=== PATIENT | female | born 1965 | race Caucasian/White ===

== ENCOUNTER 2018-08-17 19:30 | Emergency (ER) | payer SELFPAY ==
[~2018-08-17] VITALS: Ht 157.5 cm; Wt 52.3 kg
[2018-08-17 19:39] VITALS: BP 171/86
--- NOTE | 2018-08-17 20:19 | NUR ---
DR. BILL AT [facility] HE REPORTS HE WILL ORDER TYLENOL AND LIKELY HAVE PARTICLEBOARD FACTORY WORKER COME IN TO TAKE OFF AND REPLACE SPLINT.
[2018-08-17] MEDS ORDERED: acetaminophen 325mg tablet PO ONE (20:20)
== END 2018-08-17 22:09 | disposition home or self-care (01) ==
LOC: ER 19:32
DX: M96.89 Other intraoperative and postprocedural complications and disorders of the musculoskeletal system (principal); M19.90 Unspecified osteoarthritis, unspecified site; Z88.8 Allergy status to other drugs, medicaments and biological substances; Y83.9 Surgical procedure, unspecified as the cause of abnormal reaction of the patient, or of later complication, without mention of misadventure at the time of the procedure
CPT/HCPCS: 99282

== ENCOUNTER 2023-10-07 05:44 | Inpatient (IN) | payer BC ==
[2023-09-30 11:04] LABS: BASOPHILS # (AUTO) 0.1 X10'3 (0-0.2); BASOPHILS % (AUTO) 0.5 % (0-1); EOSINOPHILS % (AUTO) 0.3 % (0-6); LYMPHOCYTES # (AUTO) 2.5 X10'3 (1.1-4.8); MEAN CORPUSCULAR HEMOGLOBIN 33.6 PG (27.0-31.0); MEAN CORPUSCULAR HGB CONC 34.7 g/dL (33.0-36.5); MEAN CORPUSCULAR VOLUME 96.9 FL (78-98); MEAN PLATELET VOLUME 7.5 FL (7.4-10.4); MONOCYTES # (AUTO) 0.9 X10'3 (0-0.9); NEUTROPHILS % (AUTO) 72.2 % (42-75); PRE OP HEMATOCRIT 46.5 % (35.0-45.0); PRE OP HEMOGLOBIN 16.1 g/dL (12.0-16.0); PRE OP PLATELET COUNT 363 X10'3 (140-440); PRE OP WHITE BLOOD COUNT 12.4 10'3 (4.8-10.8); RED CELL DISTRIBUTION WIDTH 13.7 % (11.5-14.5)
[2023-09-30 11:20] LABS: ALKALINE PHOSPHATASE 116 IU/L (46-116); BLOOD UREA NITROGEN 10 MG/DL (7-18); BUN/CREATININE RATIO 14.7 (10.0-20.0); CALCIUM 9.6 MG/DL (8.5-10.1); CHLORIDE 100 MMOL/L (99-107); CREATININE 0.68 MG/DL (0.40-0.90); PRE OP ALT 34 U/L (30-65); PRE OP ANION GAP 9 (8-16); PRE OP AST 40 U/L (10-37); PRE OP BILIRUB, TOTAL 0.7 MG/DL (0.0-1.0); PRE OP GLUCOSE 103 MG/DL (70-104); PRE OP POTASSIUM 4.1 MMOL/L (3.4-5.1); PRE OP SODIUM 136 MMOL/L (135-145); TOTAL CARBON DIOXIDE 26.7 MMOL/L (24-32); TOTAL PROTEIN 7.9 G/DL (6.4-8.2); eGFR 89 ML/MIN
[~2023-10-07] VITALS: Ht 160 cm; Wt 61.3 kg
[2023-10-07] VITALS (42 sets, daily range): BP systolic 82–162; BP diastolic 40–108; PULSE 50–83; RESP 11–22; TEMP 97.2–98.7; O2SAT 94–100
[2023-10-07] MEDS: albuterol 2.5 MG/3 ML nebule NEB ONE (05:30)
[~2023-10-07 05:44] MED LIST: ALBU8HFA PO; BECL7.3A INH; LISI10TA27 PO; VITA-268 PO
[2023-10-07] MEDS: famotidine 20mg tablet PO ONE (06:18)
[2023-10-07] MEDS: vancomycin/NS 1 GM in NS 250 ML IV ONE (06:18)
[2023-10-07] MEDS: cefazolin 2gm/D5W 100mL 100 ML IV ONE (06:19)
[2023-10-07] MEDS: ringers solution, lacted 1,000 ML IV SCH ×2 (06:19→12:24)
[2023-10-07] MEDS: tranexamic acid inj. 1,000 MG in normal saline IV soln 100ML IV ONE (06:19)
[2023-10-07] MEDS ORDERED: MIDAZolam 1mg/ml 10ml vial ONE (07:23)
[2023-10-07] MEDS ORDERED: fentaNYL/PF 50MCG/1 ML 2ML syringe ONE (07:24)
[2023-10-07] MEDS ORDERED: fentaNYL/PF 50MCG/1 ML 2ML syringe IV PRN (07:30)
[2023-10-07] MEDS ORDERED: hydrALAZINE 20mg/ml inj. IV PRN (07:30)
[2023-10-07] MEDS ORDERED: labetalol 20mg/4ml (5mg/ml) syringe IV PRN (07:30)
[2023-10-07] MEDS ORDERED: morphine 4 MG/ML inj SYRINge IV PRN (07:30)
[2023-10-07] MEDS ORDERED: ROPIVAcaine 0.2% (10 MG/5 ML) BOLUS INJECTION ADDCANAL PRN (07:30)
[2023-10-07] MEDS ORDERED: ondansetron/PF 4mg/2ml inj IV PRN ×2 (07:30→12:40)
[2023-10-07] MEDS ORDERED: LIDOcaine 2% (20mg/ml) 5ml vial ONE (09:03)
[2023-10-07] MEDS ORDERED: propofol inj 20 ML IV ONE ×2 (09:03)
[2023-10-07] MEDS: vancomycin 1,000mg inj ONE (09:32)
[2023-10-07] MEDS: BUPIVACAINE/MELOXICAM 14 ML VIAL IL ONE (09:33)
[2023-10-07] MEDS: BUPIVAcaine 2.5mg/ml inj 50ml vial (contains preservative) ONE (12:19)
[2023-10-07] MEDS: tetracaine 1% (10mg/ml) pres. free inj. ONE (12:19)
[2023-10-07] MEDS: MEPIVAcaine /PF 20mg/ml 20ml SDV ONE (12:19)
[2023-10-07] MEDS: BUPIVACAINE liposomal/PF 13.3 MG/ML vial IM ONE (12:20)
[2023-10-07] MEDS: morphine 10mg/ml inj. ONE (12:20)
[2023-10-07] MEDS: dexmedetomidine 200mcg/2ml inj. IV ONE (12:20)
[2023-10-07] MEDS: ROPIVAcaine 0.5% (5mg/ml) 30ml vial ONE (12:20)
[2023-10-07] MEDS: epiNEPHrine 1 mg/ml inj ONE (12:20)
[2023-10-07] MEDS: ROPIVAcaine 0.2%/PF PUMP/bolus 545 ML ADDCANAL SCH (12:29)
[2023-10-07] MEDS ORDERED: naloxone 0.4 mg/ml inj IV PRN (12:40)
[2023-10-07] MEDS ORDERED: bisacodyl 10mg suppository rectal RC PRN (12:40)
[2023-10-07] MEDS ORDERED: acetaminophen 325mg tablet PO PRN (12:40)
[2023-10-07] MEDS ORDERED: magnesium hydroxide 30ml (MOM) UD suspension PO PRN (12:40)
[2023-10-07] MEDS ORDERED: diphenhydrAMINE 25mg capsule PO PRN ×2 (12:40)
[2023-10-07] MEDS ORDERED: HYDROmorphone inj. 0.5 MG/0.5 ML DISP.SYRIN IV PRN (12:40)
[2023-10-07] MEDS: gabapentin 300mg capsule PO SCH (13:51)
[2023-10-07] MEDS: oxyCODONE IR 5mg (immed. release) tablet PO PRN ×2 (13:53→18:37)
[2023-10-07] MEDS: acetaminophen 325mg tablet PO SCH (13:55)
[2023-10-07] MEDS: tranexamic acid inj. 610 MG in normal saline 100ml IV soln 93.9 ML IV ONE (14:19)
[2023-10-07] MEDS: morphine 2 MG/ML inj. syringe IV PRN (14:38)
[2023-10-07] MEDS: fentaNYL/PF 50MCG/1 ML 2ML syringe IV PRN (15:35)
[2023-10-07] MEDS: ceFAZolin/D5W- 1GM premix 50 ML IV SCH (15:38)
[2023-10-07] MEDS: potassium Cl 20mEq in NS 1,000 ML IV SCH (16:58)
[2023-10-07] MEDS: albuterol 2.5 MG/3 ML nebule NEB PRN (17:24)
[2023-10-07] MEDS: HYDROmorphone 1 mg/ml syringe IV PRN (19:42)
[2023-10-07] MEDS: sennosides 8.6mg tablet PO SCH (21:12)
[2023-10-07] MEDS: vancomycin/NS 1 GM ADD-VANTAGE 250 ML IV SCH (21:14)
[2023-10-08] VITALS (9 sets, daily range): BP systolic 121–128; BP diastolic 58–68; PULSE 66–91; RESP 15–20; TEMP 97.7–97.9; O2SAT 94–98
[2023-10-08] MEDS: lisinopril 10 MG tablet PO SCH (07:30)
[2023-10-08] MEDS: enoxaparin 40mg/0.4ml syringe SQ SCH (07:31)
[2023-10-08] MEDS: budesonide 0.5mg/2ml UD nebule IH SCH (07:53)
[2023-10-08] MEDS: VITAMIN B COMPLEX PO SCH (08:00)
[2023-10-08 11:51] LABS: BASOPHILS % (AUTO) 0.4 % (0-1); EOSINOPHILS # (AUTO) 0.1 X10'3 (0-0.9); EOSINOPHILS % (AUTO) 0.6 % (0-6); HEMATOCRIT 37.1 % (35.0-45.0); HEMOGLOBIN 12.5 g/dl (12.0-16.0); LYMPHOCYTES # (AUTO) 1.8 X10'3 (1.1-4.8); LYMPHOCYTES % (AUTO) 15.3 % (21-51); MEAN CORPUSCULAR HEMOGLOBIN 33.3 PG (27.0-31.0); MEAN CORPUSCULAR HGB CONC 33.8 g/dL (33.0-36.5); MEAN CORPUSCULAR VOLUME 98.6 FL (78-98); MEAN PLATELET VOLUME 7.7 FL (7.4-10.4); MONOCYTES # (AUTO) 1.1 X10'3 (0-0.9); MONOCYTES % (AUTO) 9.6 % (2-12); NEUTROPHILS # (AUTO) 8.8 X10'3 (1.8-7.7); NEUTROPHILS % (AUTO) 74.1 % (42-75); PLATELET COUNT 272 X10'3 (140-440); RED BLOOD COUNT 3.76 X10'6 (4.20-5.60); RED CELL DISTRIBUTION WIDTH 14.2 % (11.5-14.5); WHITE BLOOD COUNT 11.9 X10'3 (4.5-11.0)
[2023-10-08] MEDS ORDERED: CELE-148 PO (12:21)
[2023-10-08] MEDS ORDERED: GABA300C PO (12:23)
[2023-10-08] MEDS ORDERED: celeCOXIB 100mg capsule PO SCH (20:00)
[2023-10-09] MEDS ORDERED: acetaminophen 325mg tablet PO PRN (12:40)
== END 2023-10-08 14:12 | disposition home health service (06) | DRG 470 ==
LOC: PAS 05:44 → EDSTATUS 07:30 → PAS IN 12:43 → ORTHO 4S 16:03
PROVIDERS: ADMIT Orthopaedic Surgery; ATTEND Orthopaedic Surgery
PROC: 3E0T3BZ Introduction of Anesthetic Agent into Peripheral Nerves and Plexi, Percutaneous Approach (ICD-10-PCS; 2023-10-07)
PROC: 0SRD0J9 Replacement of Left Knee Joint with Synthetic Substitute, Cemented, Open Approach (ICD-10-PCS; principal; 2023-10-07 08:37)
DX: M17.12 Unilateral primary osteoarthritis, left knee (principal); M65.852 Other synovitis and tenosynovitis, left thigh; J45.909 Unspecified asthma, uncomplicated; F17.200 Nicotine dependence, unspecified, uncomplicated; Z88.8 Allergy status to other drugs, medicaments and biological substances
CPT/HCPCS: Z7506; Z7508; 36415; 71046; 73560; 80053; 82948; 85025; 87081; 94640; 94760; 97110; 97116; 97161; 97530; A4215; A6253; A6258; A6446; A6449; A6454; A7000; C1713; C1758; C1776; C9250; C9290; G0378; J0171; J0670; J0690; J1170; J1650; J2250; J2270; J2274; J2704; J2795; J3010; J3370; J3480; J3490; J7120